=== PATIENT | female | born 1970 | race Caucasian/White ===

== ENCOUNTER 2017-11-27 04:53 | Emergency (ER) | payer SELFPAY ==
[~2017-11-27] VITALS: Ht 160 cm; Wt 50.0 kg
[2017-11-27 05:03] VITALS: BP 137/77; PULSE 87; RESP 18; TEMP 98.3; O2SAT 99
[2017-11-27] MEDS ORDERED: SODIUM CHLOR 0.9% 1000 ML INJ 1,000 ML IV ONE (05:12)
[2017-11-27] MEDS ORDERED: SODIUM CHLORIDE 0.9% FLUSH 10 ML FLUSH IVF PRN (05:15)
[2017-11-27] MEDS ORDERED: METOCLOPRAMIDE HCL 10 MG/2 ML VIAL IV PUSH ONE (05:15)
[2017-11-27] MEDS ORDERED: KETOROLAC TROMETHAMINE 30 MG/ML (IVP) VIAL IV PUSH ONE (05:15)
--- NOTE | 2017-11-27 05:17 | PD ---
HPI Chief Complaint: Flank/Kidney Pain Time Seen by Provider: 05:12 Travel History International Travel<30 days: No Contact w/Intl Traveler<30days: No Traveled to known affect area: No History of Present Illness HPI 47-year-old female presents to the emergency department by EMS transport from home for sudden onset right-sided flank pain radiating into the right abdomen. Nausea without vomiting. Prior history of kidney stones. Pain is 10/10. No reported fever chills dysuria frequency urgency or hematuria. Patient denies . Patient is taking no medication for pain prior to arrival to the emergency department. Positive heroin use. [facility] Past Medical History Narrative Medical Kidney stones, scleroderma, heroin use; carpal tunnel repair some nursing notes reviewed Medical other: Yes (CARPLE TUNNEL) ?: Not Past Surgical History Section: Yes Other Surgery: Yes (TENDON REPAIR) Social History Alcohol Use: Yes Tobacco Use: Yes Substance Use: Yes (HEROIN) Allergies-Medications (Allergen,Severity, Reaction): Coded Allergies: acetaminophen (Verified Allergy, Severe, 11/27/17) Reported Meds & Prescriptions Reported Meds & Active Scripts Active No Active Prescriptions or Reported Medications Review of Systems Except as stated in HPI: all other systems reviewed are Neg General / Constitutional: No: Fever HENT: No: Congestion Cardiovascular: No: Chest Pain or Discomfort Respiratory: No: Shortness of Breath Gastrointestinal: Positive: Nausea, Abdominal Pain, No: Vomiting, Diarrhea Genitourinary: Positive: Flank Pain, No: Dysuria, Hematuria, Pelvic Pain Musculoskeletal: No: Myalgias, Arthralgias Skin: No Rash Neurologic: No: Weakness Psychiatric: Positive: Anxiety Hematologic/Lymphatic: No: Easy Bruising Physical Exam Narrative GENERAL: Well-developed well-nourished female in obvious discomfort no respiratory distress SKIN: Warm and dry. HEAD: Normocephalic. EYES: No scleral icterus. No injection or drainage. NECK: Supple, trachea midline. No JVD or lymphadenopathy. CARDIOVASCULAR: Regular rate and rhythm without murmurs, gallops, or rubs. RESPIRATORY: Breath sounds equal bilaterally. No accessory muscle use. GASTROINTESTINAL: Abdomen soft, non-tender, nondistended. MUSCULOSKELETAL: No cyanosis, or edema. BACK: Nontender without obvious deformity. Right side CVA tenderness. Data Data Last Documented VS Vital Signs Date Time Temp Pulse Resp B/P (MAP) Pulse Ox O2 Delivery O2 Flow Rate FiO2 11/27/17 06:48 77 17 119/70 (86) 97 Room Air 11/27/17 05:03 98.3 Orders Orders Complete Blood Count With Diff (11/27/17 05:12) Basic Metabolic Panel (Bmp) (11/27/17 05:12) Urinalysis - C+S If Indicated (11/27/17 05:12) Ecg Monitoring (11/27/17 05:12) Iv Access Insert/Monitor (11/27/17 05:12) Ketorolac Inj (Toradol Inj) (11/27/17 05:15) Sodium Chloride 0.9% Flush (Ns Flush) (11/27/17 05:15) Sodium Chlor 0.9% 1000 Ml Inj (Ns 1000 M (11/27/17 05:12) Metoclopramide Inj (Reglan Inj) (11/27/17 05:15) Drug Screen, Random Urine (11/27/17 05:12) Ct Abd/Pel W/O Iv Contrast (11/27/17 ) Labs Laboratory Tests Test 11/27/17 05:35 11/27/17 06:45 White Blood Count 4.5 TH/MM3 Red Blood Count 4.94 MIL/MM3 Hemoglobin 13.3 GM/DL Hematocrit 39.9 % Mean Corpuscular Volume 80.8 FL Mean Corpuscular Hemoglobin 27.0 PG Mean Corpuscular Hemoglobin Concent 33.4 % Red Cell Distribution Width 16.0 % Platelet Count 288 TH/MM3 Mean Platelet Volume 7.6 FL Neutrophils (%) (Auto) 57.6 % Lymphocytes (%) (Auto) 28.5 % Monocytes (%) (Auto) 12.3 % Eosinophils (%) (Auto) 0.1 % Basophils (%) (Auto) 1.5 % Neutrophils # (Auto) 2.6 TH/MM3 Lymphocytes # (Auto) 1.3 TH/MM3 Monocytes # (Auto) 0.6 TH/MM3 Eosinophils # (Auto) 0.0 TH/MM3 Basophils # (Auto) 0.1 TH/MM3 CBC Comment DIFF FINAL Differential Comment Blood Urea Nitrogen 8 MG/DL Creatinine 0.78 MG/DL Random Glucose 92 MG/DL Calcium Level 8.5 MG/DL Sodium Level 135 MEQ/L Potassium Level 4.1 MEQ/L Chloride Level 98 MEQ/L Carbon Dioxide Level 27.4 MEQ/L Anion Gap 10 MEQ/L Estimat Glomerular Filtration Rate 79 ML/MIN MDM Medical Decision Making Medical Screen Exam Complete: Yes Emergency Medical Condition: Yes Medical Record Reviewed: Yes Interpretation(s) CBC & BMP Diagram 11/27/17 05:35 Calcium Level 8.5 Vital Signs Date Time Temp Pulse Resp B/P (MAP) Pulse Ox O2 Delivery O2 Flow Rate FiO2 11/27/17 06:48 77 17 119/70 (86) 97 Room Air 11/27/17 05:03 98.3 87 18 137/77 (97) 99 Differential Diagnosis Flank pain ureteral nephrolithiasis obstructive uropathy UTI pyelonephritis biliary colic cholecystitis polysubstance abuse Narrative Course IV access obtained specimens collections of resulting patient sent for CT kidney stone protocol Toradol 30 mg IV is administered along with bolus of normal 5 mg IV Patient symptomatically improved waiting for CT imaging urinalysis remains pending and urine drug screen is pending are signed over to Dr Moran at 7 am Scripts No Active Prescriptions or Reported Meds Cassandra Blair MD Nov 27, 2017 05:17
[2017-11-27 05:49] LABS: AUTOMATED NEUTROPHIL # 2.6 TH/MM3 (1.8-7.7); BASOPHIL # 0.1 TH/MM3 (0-0.2); BASOPHIL % 1.5 % (0.0-2.0); EOSINOPHIL % 0.1 % (0.0-4.0); HEMATOCRIT 39.9 % (39.0-51.0); HEMOGLOBIN 13.3 GM/DL (13.0-17.0); LYMPH % 28.5 % (9.0-44.0); LYMPHOCYTE # 1.3 TH/MM3 (1.0-4.8); MEAN CELL VOLUME 80.8 FL (80.0-100.0); MEAN CORPUSCULAR HGB CONC 33.4 % (32.0-36.0); MEAN PLATELET VOLUME 7.6 FL (7.0-11.0); MONO % 12.3 % (0.0-8.0); MONOCYTE # 0.6 TH/MM3 (0-0.9); NEUT % 57.6 % (16.0-70.0); PLATELET COUNT 288 TH/MM3 (150-450); RED BLOOD COUNT 4.94 MIL/MM3 (4.50-5.90); WHITE BLOOD COUNT 4.5 TH/MM3 (4.0-11.0)
[2017-11-27 06:08] LABS: BICARBONATE 27.4 MEQ/L (21.0-32.0); CALCIUM 8.5 MG/DL (8.5-10.1); CREATININE 0.78 MG/DL (0.50-1.00)
[2017-11-27 06:48] VITALS: BP 119/70; PULSE 77; RESP 17; O2SAT 97
--- NOTE | 2017-11-27 07:24 | RADRPT ---
EXAM DATE: 11/27/2017 7:13 AM EDT AGE/SEX: 47 years / Female INDICATIONS: Right flank pain. CLINICAL DATA: This is the patient's initial encounter. Patient reports that signs and symptoms have been present for 1 day and indicates a pain score of 10/10. MEDICAL/SURGICAL HISTORY: Renal calculi. Substance abuse. section. RADIATION DOSE: 6.64 CTDI (mGy) COMPARISON: No prior exams available for comparison. TECHNIQUE: Multiple contiguous axial images were obtained through the abdomen. Images were obtained using multiple row detector helical technique. Using dose reduction techniques, radiation dose was ke pt as low as reasonably achievable to obtain optimal diagnostic quality images. FINDINGS: Lower Lungs: The visualized lower lungs are clear. Liver: Mild hepatomegaly is noted. The liver has a homogeneous density without space-occupying lesion . There is no dilation of the biliary tree. Spleen: Homogeneous density without enlargement. Pancreas: Unremarkable without mass or calcification. Kidneys: Normal in size and shape. No evidence of mass or hydronephrosis. Adrenal Glands: Unremarkable. Aorta: The aorta and proximal iliac vessels are grossly unremarkable without aneurysmal dilation. Bowel/Mesentery: The bowel loops are grossly unremarkable. The cecum and sigmoid colon have a normal configuration. Abdominal Wall: Intact. Retroperitoneum: No evidence of adenopathy in the retrocrural, para-aortic, or deep pelvic regions. Bladder: Contours are smooth. Reproductive Organs: Air is noted in the expected region of the vagina which is a nonspecific findin g but may indicate vaginitis. Clinical correlation is recommended. There is a small amount of free fl uid within the cul-de-sac. Inguinal: The inguinal region is unremarkable without evidence of adenopathy. Bony Structures: Mild scoliosis of the lumbar spine is noted. CONCLUSION: 1. Mild hepatomegaly. 2. Air is noted in the expected region of the vagina which is a nonspecific finding but may indicate vaginitis. Clinical correlation is recommended. 3. Small amount of free fluid within the cul-de-sac. 4. No acute obstructive uropathy. Electronically signed by: Yuri Blackmon MD 11/27/2017 7:23 AM EDT
[2017-11-27 07:49] LABS: BACTERIA, URINE RARE /hpf; BILIRUBIN, URINE NEG (NEG); BLOOD, URINE NEG (NEG); GLUCOSE,URINE NEG (NEG); KETONE, URINE NEG (NEG); MUCUS URINE FEW /lpf (OCC); NITRITE,URINE NEG (NEG); SQUAMOUS EPITHELIAL CELL URINE 4 /hpf (0-5); URINE COLOR YELLOW (YELLW/STRAW); URINE LEUKOCYTE ESTERASE NEG (NEG)
--- NOTE | 2017-11-27 08:50 | PD ---
Physical Exam Date Seen by Provider: Nov 27, 2017 Data Data Last Documented VS Vital Signs Date Time Temp Pulse Resp B/P (MAP) Pulse Ox O2 Delivery O2 Flow Rate FiO2 11/27/17 06:48 77 17 119/70 (86) 97 Room Air 11/27/17 05:03 98.3 Orders Orders Complete Blood Count With Diff (11/27/17 05:12) Basic Metabolic Panel (Bmp) (11/27/17 05:12) Urinalysis - C+S If Indicated (11/27/17 05:12) Ecg Monitoring (11/27/17 05:12) Iv Access Insert/Monitor (11/27/17 05:12) Ketorolac Inj (Toradol Inj) (11/27/17 05:15) Sodium Chloride 0.9% Flush (Ns Flush) (11/27/17 05:15) Sodium Chlor 0.9% 1000 Ml Inj (Ns 1000 M (11/27/17 05:12) Metoclopramide Inj (Reglan Inj) (11/27/17 05:15) Drug Screen, Random Urine (11/27/17 05:12) Ct Abd/Pel W/O Iv Contrast (11/27/17 ) Labs Laboratory Tests Test 11/27/17 05:35 11/27/17 06:45 White Blood Count 4.5 TH/MM3 Red Blood Count 4.94 MIL/MM3 Hemoglobin 13.3 GM/DL Hematocrit 39.9 % Mean Corpuscular Volume 80.8 FL Mean Corpuscular Hemoglobin 27.0 PG Mean Corpuscular Hemoglobin Concent 33.4 % Red Cell Distribution Width 16.0 % Platelet Count 288 TH/MM3 Mean Platelet Volume 7.6 FL Neutrophils (%) (Auto) 57.6 % Lymphocytes (%) (Auto) 28.5 % Monocytes (%) (Auto) 12.3 % Eosinophils (%) (Auto) 0.1 % Basophils (%) (Auto) 1.5 % Neutrophils # (Auto) 2.6 TH/MM3 Lymphocytes # (Auto) 1.3 TH/MM3 Monocytes # (Auto) 0.6 TH/MM3 Eosinophils # (Auto) 0.0 TH/MM3 Basophils # (Auto) 0.1 TH/MM3 CBC Comment DIFF FINAL Differential Comment Blood Urea Nitrogen 8 MG/DL Creatinine 0.78 MG/DL Random Glucose 92 MG/DL Calcium Level 8.5 MG/DL Sodium Level 135 MEQ/L Potassium Level 4.1 MEQ/L Chloride Level 98 MEQ/L Carbon Dioxide Level 27.4 MEQ/L Anion Gap 10 MEQ/L Estimat Glomerular Filtration Rate 79 ML/MIN Urine Color YELLOW Urine Turbidity CLEAR Urine pH 7.0 Urine Specific [place] 1.008 Urine Protein NEG mg/dL Urine Glucose (UA) NEG mg/dL Urine Ketones NEG mg/dL Urine Occult Blood NEG Urine Nitrite NEG Urine Bilirubin NEG Urine Urobilinogen LESS THAN 2.0 MG/DL Urine Leukocyte Esterase NEG Urine WBC 1 /hpf Urine Squamous Epithelial Cells 4 /hpf Urine Bacteria RARE /hpf Urine Mucus FEW /lpf Microscopic Urinalysis Comment CULT NOT INDICATED Urine Opiates Screen POS Urine Barbiturates Screen NEG Urine Amphetamines Screen NEG Urine Benzodiazepines Screen NEG Urine Cocaine Screen POS Urine Cannabinoids Screen NEG MDM Medical Record Reviewed: Yes Supervised Visit with NERI: No Narrative Course Patient signed out to me by Dr. Blair at change of shift, patient pending CT the abdomen and pelvis without contrast to evaluate for possible kidney stones. Please see previous providers record for full HPI and initial workup of patient. Patient is a 47-year-old female who presents the emergency room for evaluation of sudden onset of right-sided flank pain which radiates to her abdomen, patient reports that she has had history of kidney stones in the past and feels as if she is suffering from a stone at this time. Patient denies any hematuria , denies any dysuria, urinary urgency or frequency, patient with no fever or chills, patient with no other complaints at this time. GENERAL: Patient well-appearing, she was in a deep sleep - I did have to wake her up to examine her and obtain an HPI SKIN: Focused skin assessment warm/dry. HEAD: Atraumatic. Normocephalic. EYES: Pupils equal and round. No scleral icterus. No injection or drainage. ENT: No nasal bleeding or discharge. Mucous membranes pink and moist. NECK: Trachea midline. No JVD. CARDIOVASCULAR: Regular rate and rhythm. No murmur appreciated. RESPIRATORY: No accessory muscle use. Clear to auscultation. Breath sounds equal bilaterally. GASTROINTESTINAL: Abdomen soft, non-tender, nondistended. Hepatic and splenic margins not palpable. Patient with right sided flank pain MUSCULOSKELETAL: No obvious deformities. No clubbing. No cyanosis. No edema. NEUROLOGICAL: Awake and alert. No obvious cranial nerve deficits. Motor grossly within normal limits. Normal speech. PSYCHIATRIC: Appropriate mood and affect; insight and judgment normal. Upon evaluation of patient, patient reports severe pain to her right flank, she was resting comfortably prior to my evaluation CBC & BMP Diagram 11/27/17 05:35 Calcium Level 8.5 Last Impressions Abdomen/Pelvis CT 11/27/17 0000 Signed Impressions: CONCLUSION: 1. Mild hepatomegaly. 2. Air is noted in the expected region of the vagina which is a nonspecific fi nding but may indicate vaginitis. Clinical correlation is recommended. 3. Small amount of free fluid within the cul-de-sac. 4. No acute obstructive uropathy. Labs and studies were reviewed, patient was found to have air noted within her vagina which is nonspecific concerning for possible vaginitis,. I did review abnormal findings with patient, discussed need for pelvic exam which patient is refusing. Discussed with patient need to follow up with her pcp. She will return to ER as needed. CBC: wnl BMP: sodium 135, chloride 98, potassium 4.1, BUN 8, creatinine 0.78, glucose 92 UA positive for rare bacteria, few mucus, negative leuk esterase, negative nitrite Tox screen positive for cocaine as well as opiates Patient is safe to be discharged in the hospital, signs and symptoms of when to return to the emergency room was reviewed with her in detail. I also instructed patient to stop using illegal drugs Diagnosis Primary Impression: Acute flank pain Patient Instructions: General Instructions Additional Instruction: Please provide patient with a copy of their lab work and studies at discharge* * Please follow up with your primary care doctor in 2-3 days Return to the ER if symptoms worsen or progress Return to the ER as needed Scripts No Active Prescriptions or Reported Meds Disposition: 01 DISCHARGE HOME Condition: Stable Lindsey Moran DO Nov 27, 2017 08:50
[2017-11-27 08:53] VITALS: BP 122/70
== END 2017-11-27 08:55 | disposition home or self-care (01) ==
LOC: EDSEX 04:53 → NEPC 04:53
DX: R16.0 Hepatomegaly, not elsewhere classified (principal); F11.90 Opioid use, unspecified, uncomplicated; F14.90 Cocaine use, unspecified, uncomplicated; Z72.0 Tobacco use
CPT/HCPCS: 74176; 80048; 80307; 81001; 85025; 96361; 96374; 96375; 99284; J1885; J2765; J7030